=== PATIENT | female | born 1935 | race Caucasian/White ===

== ENCOUNTER 2017-06-01 12:06 | Inpatient (IN) | payer OTHER ==
[~2017-06-01] VITALS: Ht 172.7 cm; Wt 72.6 kg
[2017-06-01] MEDS ORDERED: IOPAMIDOL-370 100 ML VIAL IV ONE (13:00)
[2017-06-01] MEDS ORDERED: ISOVUE-370 50ML VIAL IV ONE ×2 (13:00→14:09)
[2017-06-01] MEDS ORDERED: BIVALIRUDIN 250 MG/VIAL IV ONE (13:00)
[2017-06-01] MEDS ORDERED: NITROGLYCERIN 5 MG/ML 10 ML VIAL IV ONE (13:00)
[2017-06-01] MEDS ORDERED: LIDOCAINE HCL 2% 20ML ONE (13:00)
[2017-06-01] MEDS ORDERED: HEPARIN SODIUM 1000UNIT/ML 10ML VIAL ONE (13:00)
[2017-06-01] MEDS ORDERED: MIDAZOLAM HCL 1 MG/ML 2ML VIAL ONE (13:42)
[2017-06-01] MEDS ORDERED: IOPAMIDOL-370 75 ML VIAL IV ONE (14:08)
[2017-06-01] MEDS ORDERED: SODIUM CHLORIDE 0.9% 1000ML 1,000 ML IV SCH (14:37)
[2017-06-01 15:15] VITALS: BP 140/77
[2017-06-01] MEDS ORDERED: METO25TA6 PO (15:49)
[2017-06-01] MEDS ORDERED: [UNRECOGNIZED DRUG - CODE] PO (15:49)
[2017-06-01] MEDS ORDERED: LOVA20TA3 PO (15:49)
[2017-06-01 16:00] VITALS: BP 136/72
[2017-06-01 17:00] VITALS: BP 126/72
[2017-06-01 18:00] VITALS: BP 132/66
[2017-06-01 20:15] VITALS: BP 131/75
[2017-06-01] MEDS ORDERED: METOPROLOL TARTRATE 25 MG TAB PO SCH (21:00)
== END 2017-06-01 20:29 | disposition home or self-care (01) | DRG 287 ==
LOC: EDHIP 13:17 → 2CH 15:11 → 2AH 19:16
PROVIDERS: ADMIT Internal Medicine Cardiovascular Disease; ATTEND Internal Medicine Cardiovascular Disease
PROC: 4A023N7 Measurement of Cardiac Sampling and Pressure, Left Heart, Percutaneous Approach (ICD-10-PCS; principal; 2017-06-01)
PROC: B2111ZZ Fluoroscopy of Multiple Coronary Arteries using Low Osmolar Contrast (ICD-10-PCS; 2017-06-01)
PROC: B2151ZZ Fluoroscopy of Left Heart using Low Osmolar Contrast (ICD-10-PCS; 2017-06-01)
PROC: B41F1ZZ Fluoroscopy of Right Lower Extremity Arteries using Low Osmolar Contrast (ICD-10-PCS; 2017-06-01)
DX: I25.110 Atherosclerotic heart disease of native coronary artery with unstable angina pectoris (principal); I11.9 Hypertensive heart disease without heart failure; I34.0 Nonrheumatic mitral (valve) insufficiency; E78.5 Hyperlipidemia, unspecified; I49.3 Ventricular premature depolarization; Z87.891 Personal history of nicotine dependence
CPT/HCPCS: 93458; 99152; 99153; C1760; C1894; J0583; J1644; J2250; J3490; Q9967